=== PATIENT | female | born 1985 ===

== ENCOUNTER 2016-10-18 10:12 | Emergency (ER) | payer MEDICAID ==
[2016-10-18 10:12] VITALS: BMI 35.0
--- NOTE | 2016-10-18 11:59 | ED PDOC ---
Arrival/HPI - General Chief Complaint: ENT Problem Time Seen by Provider: 10/18/16 11:28 Historian: Patient - History of Present Illness Narrative History of Present Illness (Text): 10/18/16 11:58 31-year-old female presents today with a one-day history of left-sided ear pain. Patient states around midnight she developed pain and popping sensation in the left side of the year. She denies fevers or chills. Denies dizziness or weakness. Denies sore throat or nasal congestion. Denies sick contacts. No medications have been taken for pain at home today. Patient describes the pain as a throbbing and stabbing 6 out of 10 pain. No other complaints Time/Duration: Other (Since last night) Symptom Onset: Sudden Symptom Course: Unchanged Quality: Stabbing, Throbbing Severity Level: 6 Past Medical History - Provider Review Nursing Documentation Reviewed: Yes - Travel History Have you recently traveled outside [place] w/in the past 3 mons?: No - Infectious Disease Hx of Infectious Diseases: None - Tetanus Immunization Tetanus Immunization: Unknown - Past Medical History Past Medical History: No Previous - Cardiac Hx Cardiac Disorders: No - Pulmonary Hx Respiratory Disorders: No - Neurological Hx Migraine: Yes - HEENT Hx HEENT Disorder: No - Renal Hx Renal Disorder: No - Endocrine/Metabolic Hx Endocrine Disorders: No Other/Comment: Family history of Diabetes - Hematological/Oncological Hx Blood Disorders: No - Integumentary Hx Dermatological Disorder: No - Musculoskeletal/Rheumatological Hx Musculoskeletal Disorders: No Hx Falls: No - Gastrointestinal Hx Gastrointestinal Disorders: Yes Hx Fatty Liver Disease: Yes Hx Gastroesophageal Reflux: Yes - Genitourinary/Gynecological Hx Genitourinary Disorders: No - Psychiatric Hx Psychophysiologic Disorder: No Hx Anxiety: No Hx Bipolar Disorder: No Hx Depression: No Hx Emotional Abuse: No Hx Hallucinations: No Hx Panic Disorder: No Hx Post Traumatic Stress Disorder: No Hx Psychosis: No Hx Physical Abuse: No Hx Schizophrenia: No Hx Sexual Abuse: No Hx Substance Use: No - Past Surgical History Past Surgical History: No Previous - Anesthesia Hx Anesthesia: No Hx Anesthesia Reactions: No Hx Malignant Hyperthermia: No - Suicidal Assessment Feels Threatened In Home Enviroment: No Family/Social History - Physician Review Nursing Documentation Reviewed: Yes Family/Social History: Unknown Family HX Smoking Status: Never Smoked Hx Alcohol Use: No Hx Substance Use: No Hx Substance Use Treatment: No Allergies/Home Meds Allergies/Adverse Reactions: Allergies No Known Allergies Allergy (Verified 10/18/16 10:22) Home Medications: Home Meds Medication Instructions Recorded Confirmed Ursodiol [Nahum Forte] 500 mg PO TID 08/27/16 10/18/16 Review of Systems - Review of Systems Constitutional: absent: Fatigue, Fevers ENT: Other (Left ear pain). absent: Sore Throat, Sinus Congestion Respiratory: absent: SOB, Cough Cardiovascular: absent: Chest Pain, Palpitations Gastrointestinal: absent: Abdominal Pain, Constipation, Diarrhea, Nausea, Vomiting Genitourinary Female: absent: Dysuria Musculoskeletal: absent: Arthralgias Skin: absent: Rash, Pruritis Neurological: absent: Headache, Dizziness Physical Exam Vital Signs Reviewed: Yes Vital Signs Temp Pulse Resp BP Pulse Ox 10/18/16 10:16 98.4 F 94 H 19 114/81 99 Temperature: Afebrile Blood Pressure: Normal Pulse: Regular Respiratory Rate: Normal Appearance: Positive for: Well-Appearing, Non-Toxic, Comfortable Pain Distress: None Mental Status: Positive for: Alert and Oriented X 3 - Systems Exam Head: Present: Atraumatic Conjunctiva: Present: Normal Ears: Present: Erythema, Normal Canal, Other (No mastoid tenderness erythema or edema). No: NORMAL TM (Left TM erythema), TM Bulging, TM Perf Mouth: Present: Moist Mucous Membranes Pharnyx: Present: Normal. No: ERYTHEMA Nose (External): Present: Atraumatic Nose (Internal): Present: Normal Inspection Neck: Present: Normal Range of Motion, Trachea Midline. No: Lymphadenopathy Respiratory/Chest: Present: Clear to Auscultation, Good Air Exchange. No: Respiratory Distress, Accessory Muscle Use Cardiovascular: Present: Regular Rate and Rhythm, Normal S1, S2. No: Murmurs Medical Decision Making ED Course and Treatment: 10/18/16 11:59 Patient is nontoxic well appearing in no distress. Vital signs are stable Motrin, amoxicillin I advised follow up with primary care physician and ENT specialist within the next 2 days, advised to increase fluids take medications as prescribed and return if symptoms worsen persist or if new symptoms develop Patient verbalizes understanding of discharge instructions and need for immediate followup. IMPRESSION; otitis media Motrin every 6 hours as needed for pain/fever reduction Increase fluids Amoxicillin 3 times daily 10 days Follow-up with ENT specialist within the next 2 days Follow up primary care physician within the next 2 days Return if symptoms worsen persist or if the symptoms develop - Medication Orders Current Medication Orders: Discontinued Medications Amoxicillin (Amoxil 500 Mg Cap) 500 mg PO STAT STA PRN Reason: Protocol Stop: 10/18/16 11:30 Last Admin: 10/18/16 11:44 Dose: 500 mg Ibuprofen (Motrin Tab) 600 mg PO STAT STA Stop: 10/18/16 11:30 Last Admin: 10/18/16 11:44 Dose: 600 mg Disposition/Present on Arrival - Present on Arrival Any Indicators Present on Arrival: No History of DVT/PE: No History of Uncontrolled Diabetes: No Urinary Catheter: No History of Decub. Ulcer: No History Surgical Site Infection Following: None - Disposition Have Diagnosis and Disposition been Completed?: Yes Diagnosis: Otitis media Disposition: HOME/ ROUTINE Disposition Time: 11:30 Patient Plan: Discharge Condition: GOOD Discharge Instructions (ExitCare): Otitis Media (ED) Additional Instructions: Motrin every 6 hours as needed for pain/fever reduction Increase fluids Amoxicillin 3 times daily 10 days Follow-up with ENT specialist within the next 2 days Follow up primary care physician within the next 2 days Return if symptoms worsen persist or if the symptoms develop Prescriptions: Amoxicillin 500 mg PO TID #30 tab Ibuprofen [Motrin] 600 mg PO Q6H PRN #20 tab PRN Reason: pain/fever reduction Referrals: Phuc May DO [Staff Provider] - Follow up with primary David Nagel MD [Staff Provider] - Follow up with primary Forms: WORK NOTE
[2016-10-18 12:03] VITALS: RESP 20; O2SAT 100
[2016-10-18 12:06] VITALS: BP 117/53; PULSE 75; TEMP 98
== END 2016-10-18 12:06 | disposition home or self-care (01) ==
LOC: ED 10:12
DX: H66.92 Otitis media, unspecified, left ear (principal)

== ENCOUNTER 2016-12-16 16:01 | Emergency (ER) | payer MEDICAID ==
[2016-12-16 16:08] VITALS: BMI 35.3
[2016-12-16 16:12] VITALS: TEMP 98.6
--- NOTE | 2016-12-16 16:54 | ED PDOC ---
Arrival/HPI - General Historian: Patient - General Chief Complaint: Abdominal Pain Time Seen by Provider: 12/16/16 16:26 - History of Present Illness Narrative History of Present Illness (Text): 12/16/16 16:51 31-year-old female with past medical history of high cholesterol, presents to the emergency room complaining of one-week history of intermittent left pelvic pain. Patient states that the pain occurs at times once a day, sometimes she goes a day or 2 without pain however today she had 3 episodes of shooting type pain that lasted an hour to an hour and a half each associated with nausea, states that the pain radiates to her left lower back. Otherwise denies any fever , chills, vomiting, denies diarrhea, dysuria, hematuria, prior abdominal surgeries, vaginal bleeding, vaginal discharge, dyspareunia. Of note, patient states that she does have an IUD, denies the possibility of being . PMD Soniya (Hilary Sanford PA-C) Past Medical History - Provider Review Nursing Documentation Reviewed: Yes - Infectious Disease Hx of Infectious Diseases: None - Tetanus Immunization Tetanus Immunization: Unknown - Past Medical History Past Medical History: No Previous - Cardiac Hx Cardiac Disorders: Yes - Pulmonary Hx Respiratory Disorders: No - Neurological Hx Neurological Disorder: Yes Hx Migraine: Yes - HEENT Hx HEENT Disorder: No - Renal Hx Renal Disorder: No - Endocrine/Metabolic Hx Endocrine Disorders: No Other/Comment: Family history of Diabetes - Hematological/Oncological Hx Blood Disorders: No - Integumentary Hx Dermatological Disorder: No - Musculoskeletal/Rheumatological Hx Musculoskeletal Disorders: No Hx Falls: No - Gastrointestinal Hx Gastrointestinal Disorders: Yes Hx Fatty Liver Disease: Yes Hx Gastroesophageal Reflux: Yes - Genitourinary/Gynecological Hx Genitourinary Disorders: No - Psychiatric Hx Psychophysiologic Disorder: No Hx Anxiety: No Hx Bipolar Disorder: No Hx Depression: No Hx Emotional Abuse: No Hx Hallucinations: No Hx Panic Disorder: No Hx Post Traumatic Stress Disorder: No Hx Psychosis: No Hx Physical Abuse: No Hx Schizophrenia: No Hx Sexual Abuse: No Hx Substance Use: No - Past Surgical History Past Surgical History: No Previous - Surgical History Hx Dilation and Curettage: Yes Other/Comment: 3 vaginal births - Anesthesia Hx Anesthesia: Yes Hx Anesthesia Reactions: No Hx Malignant Hyperthermia: No - Suicidal Assessment Feels Threatened In Home Enviroment: No Family/Social History - Physician Review Nursing Documentation Reviewed: Yes Family/Social History: No Known Family HX Smoking Status: Never Smoked Hx Alcohol Use: No Hx Substance Use: No Hx Substance Use Treatment: No Allergies/Home Meds Allergies/Adverse Reactions: Allergies No Known Allergies Allergy (Verified 12/16/16 16:08) Home Medications: Home Meds Medication Instructions Recorded Confirmed Ursodiol [Nahum Forte] 500 mg PO TID 08/27/16 12/16/16 Acetaminophen/Butalbital/Caf 1 tab PO PRN PRN 12/16/16 12/16/16 [Fioricet] Atorvastatin [Lipitor] 10 mg PO DAILY 12/16/16 12/16/16 Cholecalciferol [Vitamin D 1000 IU] 2,000 iu PO DAILY 12/16/16 12/16/16 Folic Acid [Folic Acid] 1 mg PO DAILY 12/16/16 12/16/16 Pantoprazole [Protonix EC Tab] 40 mg PO BID 12/16/16 12/16/16 Topiramate [Topamax] 50 mg PO HS 12/16/16 12/16/16 Review of Systems - Review of Systems Constitutional: Normal. absent: Fatigue, Weight Change, Fevers Respiratory: Normal. absent: SOB, Cough, Sputum Cardiovascular: Normal. absent: Chest Pain, Palpitations, Edema Gastrointestinal: Normal, Abdominal Pain. absent: Stool Changes, Appetite Changes Musculoskeletal: Normal, Back Pain. absent: Arthralgias, Neck Pain Skin: Normal. absent: Rash, Pruritis, Skin Lesions Physical Exam - Physical Exam Narrative Physical Exam (Text): 12/16/16 16:53 GENERAL APPEARANCE: Patient is awake, alert, oriented x 3, in mild painful distress. SKIN: Warm, dry; (-) cyanosis. EYES: (-) conjunctival pallor, (-) scleral icterus. ENMT: Mucous membranes moist. NECK: (-) tenderness, (-) stiffness, (-) lymphadenopathy. CHEST AND RESPIRATORY: (-) rales, (-) rhonchi, (-) wheezes; breath sounds equal bilaterally. HEART AND CARDIOVASCULAR: (-) irregularity; (-) murmur, (-) gallop. ABDOMEN AND GI: (-) distention. Bowel sounds active; (+) tenderness to the L pelvic area, (-) guarding, (-) rebound, (-) palpable masses, (-) CVA tenderness. PELVIC: normal external genitalia, (+) string of IUD noted, (-) vaginal discharge, (-) CMT tenderness, (-) pelvic or adnexal tenderness or mass. A female EMT, was present during the entire exam. EXTREMITIES: (-) deformity, (-) edema, (+) distal pulses. NEURO AND PSYCH: Mental status as above; (-) focal findings. (Juvenal ANGLIN,Hilary Pritchett) Vital Signs Temp Pulse Resp BP Pulse Ox 12/16/16 16:11 98.6 F 92 H 19 113/76 99 Medical Decision Making ED Course and Treatment: I was available for consultation during PA evaluation. The chart reviewed by me , and I agree with disposition. The documented history was done by the physician sap crm developer. The documented physical exam was done by the physician sap crm developer. The documented procedures were done by the physician sap crm developer. (Sunil Schafer) 12/16/16 16:54 31-year-old female with past medical history of high cholesterol, presents to the emergency room complaining of one-week history of intermittent left pelvic pain. Based on history and exam, to rule out ectopic versus ovarian torsion, consider UTI. Plan: - Urinalysis, urine culture - Toradol IM - Pelvic ultrasound 12/16/16 18:30 UA shows no infection, positive blood. Urine hCG is negative. Urine culture sent and pending. Patient went to ultrasound. Patient returned from ultrasound without any incident. On reevaluation, patient reports improvement of pain, she is laying in bed comfortably in no acute distress. On exam, abdomen is soft with no tenderness. Ultrasound results reviewed and discussed with the patient in great detail. Patient advised to follow-up with her PMD or her [employer] Dr. Douglass in 1-2 days without fail. Advised to take medication as prescribed. Return to the emergency room at any time for any new or worsening symptoms. Patient states she fully agrees with and understands discharge instructions. States that she agrees with the plan and disposition. Verbalized and repeated discharge instructions and plan. I have given the patient opportunity to ask any additional questions. (Hilary Sanford PA-C) - Lab Interpretations Lab Results: Lab Results 12/16/16 16:40: Urine Color Yellow, Urine Appearance Clear, Urine pH 6.0, Ur Specific [place] 1.025, Urine Protein Negative, Urine Glucose (UA) >=1000, Urine Ketones Negative, Urine Blood Moderate H, Urine Nitrate Negative, Urine Bilirubin Negative, Urine Urobilinogen 0.2, Ur Leukocyte Esterase Negative, Urine RBC 2 - 5, Urine WBC 0 - 2, Ur Epithelial Cells 6 - 8, Urine Bacteria Few - RAD Interpretation Narrative RAD Interpretations (Text): 12/16/16 19:09 TV US: FINDINGS: Uterus: Endometrium measures approximately 15.6 mm in width. There is shadowing from an IUD. There is a 9.8 x 6.3 x 9.1 mm posterior fundal fibroid. There is a 6.5 x 4.5 x 5.1 mm fundal fibroid. There is a 9.9 x 7.8 x 10 mm left anterior body fibroid. Right ovary: Right ovary measures approximately 3.68 x 1.52 x 2.52 cm. There are multiple small follicles. There is intraovarian blood flow. Left ovary: Left ovary measures approximately 3.32 x 2.44 x 2.70 cm. There are multiple small follicles. There is a corpus luteum in the left ovary. There is intraovarian blood flow. Free fluid: There is no free fluid. Bladder: Bladder is empty IMPRESSION: Fibroid uterus; intrauterine device; no torsion (Juvenal ANGLIN, Hilary Pritchett) Radiology Orders: 12/16/16 16:42 TRANSVAGINAL [US] Stat - Medication Orders Current Medication Orders: Discontinued Medications Ketorolac Tromethamine (Toradol) 60 mg IM STAT STA Stop: 12/16/16 16:43 Last Admin: 12/16/16 16:54 Dose: 60 mg - PA / DIRECT CARE PROFESSIONAL / Resident Statement MD/DO has reviewed & agrees with the documentation as recorded. Disposition/Present on Arrival - Present on Arrival Any Indicators Present on Arrival: No History of DVT/PE: No History of Uncontrolled Diabetes: No Urinary Catheter: No History of Decub. Ulcer: No History Surgical Site Infection Following: None - Disposition Have Diagnosis and Disposition been Completed?: Yes Disposition Time: 18:30 Patient Plan: Discharge - Disposition Diagnosis: Pelvic pain Disposition: HOME/ ROUTINE Patient Problems: Current Active Problems Problem Status Onset Pelvic pain Acute Condition: STABLE Discharge Instructions (ExitCare): Pelvic Pain in Women (ED) Print Language: [place] Additional Instructions: Thank you for letting us take care of you today. You were treated for pelvic pain. The emergency medical care you received today was directed at your acute symptoms. Return to the Emergency Department if your symptoms worsen, do not improve, or if you have any other problems. Please contact your doctor in 2 days for re-evaluation and follow up. Bring any paperwork you were given at discharge with you along with any medications you are taking to your follow up visit. Our treatment cannot replace ongoing medical care by a primary care provider (PCP) outside of the emergency department. Thank you for allowing the [facility] [email or web address] team to be part of your care today. Prescriptions: Naproxen 500 mg PO BID #30 tab Forms: WORK NOTE
[2016-12-16 16:57] LABS: URINE APPEARANCE CLEAR (CLEAR); URINE BILIRUBIN NEGATIVE (NEGATIVE); URINE BLOOD MODERATE (NEGATIVE); URINE COLOR YELLOW (YELLOW); URINE GLUCOSE (UA) >=1000 mg/dL (NEGATIVE); URINE LEUKOCYTE ESTERASE NEGATIVE Leu/uL (NEGATIVE); URINE NITRATE NEGATIVE (NEGATIVE); URINE PROTEIN NEGATIVE mg/dL (<30 mg/dL); URINE UROBILINOGEN 0.2 E.U./dL (<1 E.U./dL)
[2016-12-16 17:13] LABS: URINE WBC 0 - 2 /hpf (0-6)
[2016-12-16 17:14] LABS: URINE BACTERIA FEW (NEG)
--- NOTE | 2016-12-16 19:02 | US ---
EXAM: US Pelvis Complete, Transabdominal CLINICAL HISTORY: 31 years old, female; Pain; Pelvic pain; Additional info: L pelvic pain, R/O torsion; LMP 11/25/16 TECHNIQUE: Real-time transabdominal pelvic ultrasound (complete) with image documentation. COMPARISON: There are no prior studies for comparison. FINDINGS: Uterus: Uterus is anteflexed. Uterus measures approximately 8.6 x 5.1 x 7.3 cm. Endometrium measures approximately 11.9 mm. There is shadowing from an IUD. Right ovary: Right ovary could not be identified Left ovary: Left ovary could not be identified Free fluid: No free fluid. Bladder: Bladder is incompletely distended which limits evaluation. IMPRESSION: Limited by body habitus and incomplete bladder distention; normal sized anteflexed uterus with IUD; nonvisualization of ovaries EXAM: US Pelvis, Transvaginal CLINICAL HISTORY: 31 years old, female; Pain; Pelvic pain; Additional info: L pelvic pain, R/O torsion LMP 11/25/16 TECHNIQUE: Real-time transvaginal pelvic ultrasound (complete) with image documentation. Transvaginal imaging was used for better evaluation of the endometrium and adnexa. EXAM DATE/TIME: 12/16/2016 4:42 PM COMPARISON: There are no prior studies for comparison. FINDINGS: Uterus: Endometrium measures approximately 15.6 mm in width. There is shadowing from an IUD. There is a 9.8 x 6.3 x 9.1 mm posterior fundal fibroid. There is a 6.5 x 4.5 x 5.1 mm fundal fibroid. There is a 9.9 x 7.8 x 10 mm left anterior body fibroid. Right ovary: Right ovary measures approximately 3.68 x 1.52 x 2.52 cm. There are multiple small follicles. There is intraovarian blood flow. Left ovary: Left ovary measures approximately 3.32 x 2.44 x 2.70 cm. There are multiple small follicles. There is a corpus luteum in the left ovary. There is intraovarian blood flow. Free fluid: There is no free fluid. Bladder: Bladder is empty IMPRESSION: Fibroid uterus; intrauterine device; no torsion
[2016-12-16 19:23] VITALS: BP 118/80; PULSE 89; RESP 18; O2SAT 100
== END 2016-12-16 19:23 | disposition home or self-care (01) ==
LOC: ED 16:01
DX: R10.2 Pelvic and perineal pain (principal)
CPT/HCPCS: 76830; 81001; 87086; 96372; 99284; J1885

== ENCOUNTER 2017-02-01 11:16 | Emergency (ER) | payer MEDICAID ==
[2017-02-01 11:34] VITALS: BMI 35.2
--- NOTE | 2017-02-01 12:07 | ED PDOC ---
Arrival/HPI - General Chief Complaint: Abnormal Skin Integrity Time Seen by Provider: 02/01/17 11:56 Historian: Patient - History of Present Illness Narrative History of Present Illness (Text): 02/01/17 12:02 31-year-old female presents today with neck pain that has been worsening since last night. Patient states [place] with [place] yesterday and was feeling fine until last night when she started to develop achy pain in the neck. Patient took a Naprosyn last night before bed. Patient states when she woke up today and neck was very stiff and sore. No medications have been taken for pain today. Patient denies headache dizziness or weakness. No chest pain or shortness of breath. Patient's partner states that he applied BenGay to the neck without improvement in her symptoms. Patient denies numbness weakness or tingling in the extremities. No other complaints Symptom Onset: Gradual Symptom Course: Worsening Quality: Aching, Pressure, Tightness Severity Level: 9 Past Medical History - Provider Review Nursing Documentation Reviewed: Yes - Travel History Have you recently traveled outside [place] w/in the past 3 mons?: No - Infectious Disease Hx of Infectious Diseases: None - Tetanus Immunization Tetanus Immunization: Unknown - Past Medical History Past Medical History: No Previous - Cardiac Hx Cardiac Disorders: Yes - Pulmonary Hx Respiratory Disorders: No - Neurological Hx Neurological Disorder: Yes Hx Migraine: Yes - HEENT Hx HEENT Disorder: No - Renal Hx Renal Disorder: No - Endocrine/Metabolic Hx Endocrine Disorders: No Other/Comment: Family history of Diabetes - Hematological/Oncological Hx Blood Disorders: No - Integumentary Hx Dermatological Disorder: No - Musculoskeletal/Rheumatological Hx Musculoskeletal Disorders: No Hx Falls: No - Gastrointestinal Hx Gastrointestinal Disorders: Yes Hx Fatty Liver Disease: Yes Hx Gastroesophageal Reflux: Yes - Genitourinary/Gynecological Hx Genitourinary Disorders: No - Psychiatric Hx Psychophysiologic Disorder: No Hx Anxiety: No Hx Bipolar Disorder: No Hx Depression: No Hx Emotional Abuse: No Hx Hallucinations: No Hx Panic Disorder: No Hx Post Traumatic Stress Disorder: No Hx Psychosis: No Hx Physical Abuse: No Hx Schizophrenia: No Hx Sexual Abuse: No Hx Substance Use: No - Past Surgical History Past Surgical History: No Previous - Surgical History Hx Dilation and Curettage: Yes Other/Comment: 3 vaginal births - Anesthesia Hx Anesthesia: Yes Hx Anesthesia Reactions: No Hx Malignant Hyperthermia: No - Suicidal Assessment Feels Threatened In Home Enviroment: No Family/Social History - Physician Review Nursing Documentation Reviewed: Yes Family/Social History: Unknown Family HX Smoking Status: Never Smoked Hx Alcohol Use: No Hx Substance Use: No Hx Substance Use Treatment: No Allergies/Home Meds Allergies/Adverse Reactions: Allergies No Known Allergies Allergy (Verified 02/01/17 11:35) Home Medications: Home Meds Medication Instructions Recorded Confirmed Ursodiol [Nahum Forte] 500 mg PO TID 08/27/16 02/01/17 Acetaminophen/Butalbital/Caf 1 tab PO PRN PRN 12/16/16 02/01/17 [Fioricet] Atorvastatin [Lipitor] 10 mg PO DAILY 12/16/16 02/01/17 Cholecalciferol [Vitamin D 1000 IU] 2,000 iu PO DAILY 12/16/16 02/01/17 Folic Acid [Folic Acid] 1 mg PO DAILY 12/16/16 02/01/17 Pantoprazole [Protonix EC Tab] 40 mg PO BID 12/16/16 02/01/17 Topiramate [Topamax] 50 mg PO HS 12/16/16 02/01/17 Review of Systems - Review of Systems Constitutional: absent: Fatigue, Fevers Eyes: absent: Vision Changes Respiratory: absent: SOB, Cough Cardiovascular: absent: Chest Pain Gastrointestinal: absent: Abdominal Pain, Nausea, Vomiting Genitourinary Female: absent: Vaginal Bleeding Musculoskeletal: Neck Pain. absent: Arthralgias, Back Pain Skin: absent: Rash, Pruritis Psychiatric: absent: Anxiety Physical Exam Vital Signs Reviewed: Yes Vital Signs Temp Pulse Resp BP Pulse Ox 02/01/17 12:10 87 20 113/59 L 100 02/01/17 11:17 98 F 87 16 107/67 99 Temperature: Afebrile Blood Pressure: Normal Pulse: Regular Respiratory Rate: Normal Appearance: Positive for: Well-Appearing, Non-Toxic, Comfortable Pain Distress: None Mental Status: Positive for: Alert and Oriented X 3 - Systems Exam Head: Present: Atraumatic Mouth: Present: Moist Mucous Membranes Neck: Present: Normal Range of Motion, Paraspinal Tenderness, Trachea Midline, Other (+ b/l paraspinal tenderness. no midline tenderness. + b/l trapezius tenderness. no edema, no erythema; no ecchymosis; full rom of neck with pain). No: Meningeal Signs, MIDLINE TENDERNESS Respiratory/Chest: Present: Clear to Auscultation Cardiovascular: Present: Regular Rate and Rhythm Abdomen: No: Tenderness, Rebound, Guarding Back: Present: Normal Inspection Upper Extremity: Present: Normal ROM, Neurovascularly Intact Lower Extremity: Present: Normal ROM Neurological: Present: GCS=15 Skin: Present: Warm, Dry, Normal Color. No: Rashes Psychiatric: Present: Alert, Oriented x 3 Medical Decision Making ED Course and Treatment: 02/01/17 12:29 Patient nontoxic well-appearing in no distress with stable vital signs. Toradol, Flexeril Patient reassessment: Feeling better with medications, Muscle strength 5 out of 5 bilaterally. I advised to followup with the orthopedist within the next 2 days. Return if symptoms worsen persist or new symptoms develop Patient verbalizes understanding of discharge instructions and need for immediate followup. Impression: Neck pain Motrin every 6 hours as needed for pain Flexeril one tablet every 8 hours as needed for muscle spasms: May cause drowsiness Followup with the orthopedist within the next 2 days Followup with primary care physician within the next 2 days Return if symptoms worsen persist or if new symptoms develop 02/01/17 12:58 - Medication Orders Current Medication Orders: Discontinued Medications Cyclobenzaprine HCl (Flexeril) 10 mg PO STAT STA Stop: 02/01/17 11:57 Last Admin: 02/01/17 12:03 Dose: 10 mg Ketorolac Tromethamine (Toradol) 60 mg IM STAT STA Stop: 02/01/17 11:57 Last Admin: 02/01/17 12:05 Dose: 60 mg Disposition/Present on Arrival - Present on Arrival Any Indicators Present on Arrival: No History of DVT/PE: No History of Uncontrolled Diabetes: No Urinary Catheter: No History of Decub. Ulcer: No History Surgical Site Infection Following: None - Disposition Have Diagnosis and Disposition been Completed?: Yes Diagnosis: Neck pain Disposition: HOME/ ROUTINE Disposition Time: 12:59 Patient Plan: Discharge Condition: GOOD Discharge Instructions (ExitCare): Cervical Sprain (ED) Additional Instructions: Motrin every 6 hours as needed for pain Flexeril one tablet every 8 hours as needed for muscle spasms: May cause drowsiness Followup with the orthopedist within the next 2 days Followup with primary care physician within the next 2 days Return if symptoms worsen persist or if new symptoms develop Prescriptions: Cyclobenzaprine [Cyclobenzaprine HCl] 10 mg PO Q8 #10 tab Ibuprofen [Motrin] 600 mg PO Q6H PRN #20 tab PRN Reason: pain/fever reduction Referrals: Markie Byrnes MD [Primary Care Provider] - Follow up with primary Dawood Blackman MD [Staff Provider] - Follow up with primary Forms: [employer] (Nicaraguan), WORK NOTE
[2017-02-01 12:11] VITALS: O2SAT 100
[2017-02-01 13:34] VITALS: BP 121/72; PULSE 75; RESP 19; TEMP 97.9
== END 2017-02-01 13:34 | disposition home or self-care (01) ==
LOC: ED 11:16
DX: M54.2 Cervicalgia (principal)
CPT/HCPCS: 96372; 99283; J1885

== ENCOUNTER 2017-06-19 15:30 | Emergency (ER) | payer MEDICAID, OTHER ==
[2017-06-19 15:30] VITALS: BMI 35.2
[2017-06-19 15:42] VITALS: RESP 18; TEMP 98.7
--- NOTE | 2017-06-19 15:54 | ED PDOC ---
Arrival/HPI - General Chief Complaint: Upper Extremity Problem/Injury Time Seen by Provider: 06/19/17 15:48 Historian: Patient - History of Present Illness Narrative History of Present Illness (Text): 06/19/17 15:51 32 y/o female, no pmh, nkda, c/o rt. shoulder and chest pain x 2-3 days. Pt. stated that she has rt. shoulder pain, aggravated by movement, no numbness or tingling, occasionally radiating to the chest cavity, no palpitation, no rash, no night sweat, no dizziness, no change in vision, no other medical or psychological complaints. Past Medical History - Provider Review Nursing Documentation Reviewed: Yes - Infectious Disease Hx of Infectious Diseases: None - Tetanus Immunization Tetanus Immunization: Unknown - Reproductive Menopause: No - Past Medical History Past Medical History: No Previous - Cardiac Hx Cardiac Disorders: Yes - Pulmonary Hx Respiratory Disorders: No - Neurological Hx Neurological Disorder: Yes Hx Migraine: Yes - HEENT Hx HEENT Disorder: No - Renal Hx Renal Disorder: No - Endocrine/Metabolic Hx Endocrine Disorders: No Other/Comment: Family history of Diabetes - Hematological/Oncological Hx Blood Disorders: No - Integumentary Hx Dermatological Disorder: No - Musculoskeletal/Rheumatological Hx Musculoskeletal Disorders: No Hx Falls: No - Gastrointestinal Hx Gastrointestinal Disorders: Yes Hx Fatty Liver Disease: Yes Hx Gastroesophageal Reflux: Yes - Genitourinary/Gynecological Hx Genitourinary Disorders: No - Psychiatric Hx Psychophysiologic Disorder: No Hx Anxiety: No Hx Bipolar Disorder: No Hx Depression: No Hx Emotional Abuse: No Hx Hallucinations: No Hx Panic Disorder: No Hx Post Traumatic Stress Disorder: No Hx Psychosis: No Hx Physical Abuse: No Hx Schizophrenia: No Hx Sexual Abuse: No Hx Substance Use: No - Past Surgical History Past Surgical History: No Previous - Surgical History Hx Dilation and Curettage: Yes Other/Comment: 3 vaginal births - Anesthesia Hx Anesthesia: Yes Hx Anesthesia Reactions: No Hx Malignant Hyperthermia: No - Suicidal Assessment Feels Threatened In Home Enviroment: No Family/Social History - Physician Review Nursing Documentation Reviewed: Yes Family/Social History: Unknown Family HX Smoking Status: Never Smoked Hx Alcohol Use: No Hx Substance Use: No Hx Substance Use Treatment: No Allergies/Home Meds Allergies/Adverse Reactions: Allergies No Known Allergies Allergy (Verified 06/19/17 17:07) Review of Systems - Review of Systems Constitutional: absent: Fatigue, Fevers Eyes: absent: Vision Changes ENT: absent: Hearing Changes Respiratory: absent: SOB, Cough Cardiovascular: Chest Pain Gastrointestinal: absent: Abdominal Pain, Diarrhea, Nausea, Vomiting Musculoskeletal: Arthralgias. absent: Back Pain, Neck Pain, Myalgias Skin: absent: Rash, Pruritis Neurological: absent: Headache Psychiatric: absent: Anxiety, Depression, Suicidal Ideation Physical Exam Vital Signs Reviewed: Yes Vital Signs Temp Pulse Resp BP Pulse Ox 06/19/17 16:18 93 H 18 130/79 97 06/19/17 16:05 98.7 F 80 18 132/73 97 06/19/17 15:39 98.7 F 88 18 96 Temperature: Afebrile Blood Pressure: Normal Pulse: Regular Respiratory Rate: Normal Appearance: Positive for: Well-Appearing, Non-Toxic, Comfortable Pain Distress: Moderate Mental Status: Positive for: Alert and Oriented X 3 - Systems Exam Head: Present: Atraumatic, Normocephalic Pupils: Present: PERRL Extroacular Muscles: Present: EOMI Conjunctiva: Present: Normal Mouth: Present: Moist Mucous Membranes Neck: Present: Normal Range of Motion Respiratory/Chest: Present: Clear to Auscultation, Good Air Exchange, Other ( pain is 100% reproducible by palpation on the bilateral pectoralis major muscle region). No: Respiratory Distress, Accessory Muscle Use, Wheezes, Decreased Breath Sounds, Rales, Retracting, Rhonchi, Tachypneic, Tender to Palpation Cardiovascular: Present: Regular Rate and Rhythm, Normal S1, S2, Other (no pedal edema). No: Murmurs Abdomen: Present: Normal Bowel Sounds. No: Tenderness, Distention, Peritoneal Signs, Rebound, Guarding Back: Present: Normal Inspection Upper Extremity: Present: Normal Inspection. No: Cyanosis, Edema Lower Extremity: Present: Normal Inspection. No: Edema Neurological: Present: GCS=15, Speech Normal, Motor Func Grossly Intact, Gait Normal, Memory Normal Skin: Present: Warm, Dry, Normal Color. No: Rashes Psychiatric: Present: Alert, Oriented x 3, Normal Insight, Normal Concentration Medical Decision Making ED Course and Treatment: 06/19/17 15:57 -labs -ekg -xrays -toradol IM -observe and reassess 06/19/17 16:49 -Based on the PERC criteria, zero criteria meet. -Urine hcg is negative -HEART score is 1 -EKG: NSR @ 88 BPM, no ST elevation or depression, T wave inversion on the lead III. -Chest xray: no active disease -Rt. shoulder xray: no active disease -Labs are non-significant, negative lipase, negative troponin after 24 hours onset of chest pain. -Pain relief with the toradol IM, all symptoms resolved, stable for outpatient follow up. -Discharge home with [facility], follow up with your own pmd and orthopedic/ vehicle return associate within2 days, return to the ER for any new or worsening signs or symptoms. - Lab Interpretations Lab Results: 06/19/17 16:12 06/19/17 16:12 Lab Results 06/19/17 16:12: Sodium 141, Potassium 4.1, Chloride 105, Carbon Dioxide 27, Anion Gap 13, BUN 17, Creatinine 0.9, Est GFR ( Amer) > 60, Est GFR (Non- Af Amer) > 60, Random Glucose 95, Calcium 9.4, Total Bilirubin 0.2, AST 21, ALT 23, Alkaline Phosphatase 82, Total Creatine Kinase 52, Troponin I < 0.01, Total Protein 7.4, Albumin 4.1, Globulin 3.3, Albumin/Globulin Ratio 1.2, Lipase 144 06/19/17 16:12: WBC 8.2, RBC 4.46, Hgb 12.6, Hct 39.5, MCV 88.6, MCH 28.3, MCHC 31.9, RDW 13.1, Plt Count 247, MPV 11.5 H, Gran % 54.7, Lymph % (Auto) 37.3 H, Kimble % (Auto) 4.7, Eos % (Auto) 2.7, Baso % (Auto) 0.6, Gran # 4.51, Lymph # 3.1 , Kimble # 0.4, Eos # 0.2, Baso # 0.05 - RAD Interpretation Radiology Orders: 06/19/17 15:48 CHEST TWO VIEWS (PA/LAT) [RAD] Stat SHOULDER RIGHT [RAD] Stat -Chest xray: HISTORY: chest pain x 2 days COMPARISON: 03/20/2016 TECHNIQUE: Chest PA and lateral FINDINGS: LUNGS: No active pulmonary disease. PLEURA: No significant pleural effusion identified. No pneumothorax apparent. CARDIOVASCULAR: No radiographic findings to suggest acute or significant cardiovascular disease. OSSEOUS STRUCTURES: No significant abnormalities. VISUALIZED UPPER ABDOMEN: Normal. OTHER FINDINGS: None. IMPRESSION: No active disease. No significant interval change compared to the prior examination(s). Rt. shoulder xray: PROCEDURE: Radiographs of the Right Shoulder HISTORY: rt. shoulder pain x 2-3 days. COMPARISON: No prior. FINDINGS: BONES: Normal. No fracture. JOINTS: Normal. Glenohumeral and acromioclavicular joints preserved. No osteoarthritis. SOFT TISSUES: Normal. OTHER FINDINGS: None. IMPRESSION: Normal radiographs of the right shoulder. 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 Yes Sleep Is patient sleeping during reassessment? 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 Disposition/Present on Arrival - Present on Arrival Any Indicators Present on Arrival: No History of DVT/PE: No History of Uncontrolled Diabetes: No Urinary Catheter: No History of Decub. Ulcer: No History Surgical Site Infection Following: None - Disposition Have Diagnosis and Disposition been Completed?: Yes Diagnosis: Atypical chest pain, Shoulder pain Disposition: HOME/ ROUTINE Disposition Time: 16:51 Patient Plan: Discharge Condition: IMPROVED Discharge Instructions (ExitCare): Chest Pain (ED) Print Language: AUSTRIAN Additional Instructions: -Discharge home with [employer], follow up with your own pmd and orthopedic/ vehicle return associate within2 days, return to the ER for any new or worsening signs or symptoms. Referrals: Markie Byrnes MD [Primary Care Provider] - Follow up with primary Sachi Zamora MD [Staff Provider] - Follow up with primary Marty Avery MD [Staff Provider] - Follow up with primary Forms: [email or web address] ([place]ivehi), WORK NOTE
[2017-06-19 16:05] VITALS: O2SAT 97
[2017-06-19 16:18] VITALS: BP 130/79; PULSE 93
[2017-06-19 16:29] LABS: ALB/GLOB RATIO 1.2 (1.1-1.8); ALBUMIN 4.1 g/dL (3.0-4.8); ALT/SGPT 23 U/L (7-56); AST/SGOT 21 U/L (14-36); BLOOD UREA NITROGEN 17 mg/dL (7-21); CALCIUM 9.4 mg/dL (8.4-10.5); GFR AFRICAN-AMERICAN > 60; GFR NON-AFRICAN AMERICAN > 60; LIPASE 144 U/L (23-300)
[2017-06-19 16:31] LABS: BASO # 0.05 K/mm3 (0.0-2.0); BASO % 0.6 % (0.0-3.0); EOS # 0.2 (0.0-0.7); EOS % 2.7 % (1.5-5.0); GRAN # 4.51 (1.4-6.5); GRAN % 54.7 % (50.0-68.0); HEMOGLOBIN 12.6 g/dL (12.0-16.0); LYMPH # 3.1 (1.2-3.4); LYMPH % 37.3 % (22.0-35.0); MEAN CELL VOLUME 88.6 fl (80.0-105.0); MEAN CORPUSCULAR HEMOGLOBIN 28.3 pg (25.0-35.0); MEAN CORPUSCULAR HGB CONC 31.9 g/dl (31.0-37.0); MEAN PLATELET VOLUME 11.5 fl (7.0-11.0); MONO # 0.4 (0.1-0.6); MONO % 4.7 % (1.0-6.0); RBC 4.46 10^6/uL (3.5-6.1); RED CELL DISTRIBUTION WIDTH 13.1 % (11.5-14.5); WHITE BLOOD COUNT 8.2 10^3/ul (4.5-11.0)
[2017-06-19 16:48] LABS: TROPONIN I < 0.01 ng/mL
--- NOTE | 2017-06-19 17:37 | RAD ---
HISTORY: chest pain x 2 days COMPARISON: 03/20/2016 TECHNIQUE: Chest PA and lateral FINDINGS: LUNGS: No active pulmonary disease. PLEURA: No significant pleural effusion identified. No pneumothorax apparent. CARDIOVASCULAR: No radiographic findings to suggest acute or significant cardiovascular disease. OSSEOUS STRUCTURES: No significant abnormalities. VISUALIZED UPPER ABDOMEN: Normal. OTHER FINDINGS: None. IMPRESSION: No active disease. No significant interval change compared to the prior examination(s). Concordant results with the preliminary interpretation rendered by the emergency department physician procedure.
--- NOTE | 2017-06-19 17:38 | RAD ---
PROCEDURE: Radiographs of the Right Shoulder HISTORY: rt. shoulder pain x 2-3 days. COMPARISON: No prior. FINDINGS: BONES: Normal. No fracture. JOINTS: Normal. Glenohumeral and acromioclavicular joints preserved. No osteoarthritis. SOFT TISSUES: Normal. OTHER FINDINGS: None. IMPRESSION: Normal radiographs of the right shoulder. Concordant results with the preliminary interpretation rendered by the emergency department physician procedure.
--- NOTE | 2017-06-19 19:51 | CARD ---
APPROVED REPORT EKG Measurement Heart [id number] <Conclusion> Normal sinus rhythm Minimal voltage criteria for LVH, may be normal variant Cannot rule out Anterior infarct, age undetermined Abnormal ECG
== END 2017-06-19 16:58 | disposition home or self-care (01) ==
LOC: ED 15:30
DX: R07.89 Other chest pain (principal); M25.511 Pain in right shoulder
CPT/HCPCS: 71046; 73030; 80053; 82550; 83690; 84484; 85025; 93005; 96372; 99284; J1885